=== PATIENT | female | born 1970 | race Caucasian/White ===

== ENCOUNTER 2023-03-15 13:11 | Emergency (ER) | payer OTHER, SELFPAY ==
[2023-03-15 13:35] VITALS: BP 111/76; PULSE 91; RESP 16; TEMP 36.7; O2SAT 97; BMI 31.9
== END 2023-03-15 15:35 | disposition left against medical advice (07) ==
PROVIDERS: Emergency Provider Emergency Medicine
DX: L98.9 Disorder of the skin and subcutaneous tissue, unspecified (principal)
CPT/HCPCS: 99281

== ENCOUNTER 2023-03-29 16:41 | Emergency (ER) | payer MEDICARE, SELFPAY ==
[2023-03-29 16:44] VITALS: BP 145/75; PULSE 95; RESP 16; TEMP 36.4; O2SAT 99; BMI 31.8
--- NOTE | 2023-03-29 17:44 | DI.RAD.S_ITS ---
PROCEDURE: XR ACUTE ABDOMEN SERIES INDICATIONS: Abdominal pain TECHNIQUE: One view chest and two views of the abdomen were acquired. COMPARISON: None. FINDINGS: Surgical changes and devices: Artificial disc within the L4-5 disc space. Chest: Lungs are clear. Heart size is normal. No pleural effusions. No pneumoperitoneum. Abdomen: Increased stool in the large bowel suggests constipation. No free air, pneumatosis or portal venous gas. No air-fluid levels. Bones: Degenerative disc disease at L3-4. Healed right rib fracture. IMPRESSION: 1. No acute cardiopulmonary abnormality. 2. No acute plain film abnormality of the abdomen. Dictated by: Syed Tello M.D. on 03/29/2023 at 17:47 Approved by: Syed Tello M.D. on 03/29/2023 at 17:51
--- NOTE | 2023-03-29 17:50 | ED_ITS ---
HPI - Female Genitourinary <Deanna Bolivar PA-C - Last Filed: 03/29/23 19:13> General Chief complaint: Urogenital-Female Stated complaint: Stomach swelling Time Seen by Provider: 03/29/23 16:56 Source: patient Mode of arrival: Ambulatory History of Present Illness HPI Narrative: 52-year-old woman on chronic methadone treatment presents with concern for possible UTI and possible constipation. Patient states that 3 months ago she was in the hospital in [place] with an abdominal infection she is unclear exactly what it was, but my bowels weren't moving and she states that recently she feels she has been having to push somewhat when she pees and she has been having smaller bowel movements. She says she has been having abdominal pain for the past 3 months that has been constant ever since she left the hospital and it has been slightly worse in the past 2 weeks. Patient wonders if this is related to her blood type. She states that she has been having bowel movements including this morning and yesterday but these are smaller than ?normal. She states she has not yet established care with a primary care provider but she is trying to, her friend/ housemate who she lives with his here with her today. She states she has been using medicine to help with constipation ?ever since I left the hospital 3 months ago. She denies nausea, vomiting, diarrhea, inability to have a bowel movement, severe abdominal pain, urgency frequency or pain with urination. Related Data Previous Rx's Medication Instructions Recorded doxycycline hyclate 100 mg capsule 100 mg PO BID 10 days #20 caps 03/29/23 Allergies Allergy/AdvReac Type Severity Reaction Status Date / Time No Known Drug Allergies Allergy Verified 03/29/23 16:44 Review of Systems <Deanna Bolivar PA-C - Last Filed: 03/29/23 19:13> Review of Systems Narrative: See HPI Patient History <Deanna Bolivar PA-C - Last Filed: 03/29/23 19:13> Substance Use Type: does not use Exam <Deanna Bolivar PA-C - Last Filed: 03/29/23 19:13> Narrative Exam Narrative: GENERAL: 52 year old patient appears stated age. Well-developed patient, in mild distress. HEAD: Atraumatic. Normocephalic. EYES: Pupils equal round and reactive. Extraocular motions intact. No scleral icterus. No injection or drainage. ENT: Patient has upper plate dentures present, Nose without bleeding, purulent drainage. Throat without erythema, tonsillar hypertrophy or exudate. Airway patent. No lymphadenopathy noted NECK: Trachea midline. Non tender CARDIOVASCULAR: Regular rate and rhythm without murmurs, gallops, or rubs. RESPIRATORY: Clear to auscultation. Breath sounds equal bilaterally. No wheezes, rales, or rhonchi. GASTROINTESTINAL: Abdomen soft, there is mild generalized tenderness, belly is protuberant, nondistended, there is right flank tenderness, there is a midline well-healed abdominal scar. EXTREMITIES: No edema or joint tenderness. BACK: Nontender without deformity or crepitance. Right flank tenderness. NEURO: AOx3. SKIN: There is a proximally 2 x 4 cm old purplish bruise on the left posterior upper arm, there are multiple lesions less than 0.5 cm present on the patient's lower extremities and arms which appeared to have been picked open, possibly consistent with bug bites. They are non fluctuant without induration or notable discharge. No rash or erythema of visible areas Initial Vital Signs Initial Vital Signs: Vital Signs Temperature 97.5 F L 03/29/23 16:44 Pulse Rate 95 H 03/29/23 16:44 Respiratory Rate 16 03/29/23 16:44 Blood Pressure 145/75 H 03/29/23 16:44 Pulse Oximetry 99 03/29/23 16:44 Oxygen Delivery Method Room Air 03/29/23 16:44 <Justen Gaxiola DO - Last Filed: 03/30/23 02:00> Initial Vital Signs Initial Vital Signs: Vital Signs Temperature 97.5 F L 03/29/23 16:44 Pulse Rate 95 H 03/29/23 16:44 Respiratory Rate 16 03/29/23 16:44 Blood Pressure 145/75 H 03/29/23 16:44 Pulse Oximetry 99 03/29/23 16:44 Oxygen Delivery Method Room Air 03/29/23 16:44 Course <Deanna Bolivar PA-C - Last Filed: 03/29/23 19:13> Orders Ordered: ED Orders 03/29/23 17:44 XR acute abdomen series Stat Discontinued Medications Ondansetron HCl (Ondansetron 4 Mg Odt) 4 mg SL NOW PRN PRN Reason: Nausea And Vomiting Ondansetron HCl (Ondansetron 4 Mg/2 Ml Inj) 4 mg IV NOW PRN PRN Reason: Nausea And Vomiting Vital Signs Vital signs: Vital Signs - 8 hr 03/29/23 16:44 Temperature 97.5 F L Pulse Rate 95 H Respiratory Rate 16 Blood Pressure 145/75 H Pulse Oximetry 99 Oxygen Delivery Method Room Air <Justen Gaxiola DO - Last Filed: 03/30/23 02:00> Orders Ordered: ED Orders 03/29/23 17:44 XR acute abdomen series Stat Discontinued Medications Ondansetron HCl (Ondansetron 4 Mg Odt) 4 mg SL NOW PRN PRN Reason: Nausea And Vomiting Ondansetron HCl (Ondansetron 4 Mg/2 Ml Inj) 4 mg IV NOW PRN PRN Reason: Nausea And Vomiting Vital Signs Vital signs: Vital Signs - 8 hr 03/29/23 16:44 Temperature 97.5 F L Pulse Rate 95 H Respiratory Rate 16 Blood Pressure 145/75 H Pulse Oximetry 99 Oxygen Delivery Method Room Air MDM - Female Genitourinary <Deanna Bolivar PA-C - Last Filed: 03/29/23 19:13> Medical Records Attestation: I reviewed the patient's medical records. Lab Data Attestation: I reviewed the patient's lab results. Labs: Urine Dip Bedside Urine Glucose Negative Bedside Urine Bilirubin - Negative Bedside Urine Ketone - Negative Urine Specific [place] 1.01 Bedside Urine Occult Blood - Negative Bedside Urine pH 6.0 Bedside Urine Protein - Negative Bedside Urine Urobilinogen - Negative Bedside Urine Nitrite - Negative Bedside Urine Leukocytes - Negative Esterase Imaging Data Abdominal x-ray: My Impression: Agree with Radiology interpretation Radiologist's Impression: [address] [address] XRay Report Signed Patient: Chela Gallegos MR#: [id number] : 1970 Acct:[id number] Age/Sex: 52 / F Date of Service: 03/29/23 Loc: ED Accession Number: [id number] ?? Procedure: XR acute abdomen series Ordering Provider: Deanna Bolivar P.A-C PROCEDURE:? XR ACUTE ABDOMEN SERIES ? INDICATIONS:? Abdominal pain ? TECHNIQUE:? One view chest and two views of the abdomen were acquired.? ? COMPARISON:? None. ? FINDINGS:? ? Surgical changes and devices:? Artificial disc within the L4-5 disc space.? ? Chest:? Lungs are clear.? Heart size is normal.? No pleural effusions.? No pneumoperitoneum.? ? Abdomen:? Increased stool in the large bowel suggests constipation.? No free air, pneumatosis or portal venous gas.? No air-fluid levels. ? Bones:? Degenerative disc disease at L3-4.? Healed right rib fracture. ? IMPRESSION:? 1. No acute cardiopulmonary abnormality.? 2. No acute plain film abnormality of the abdomen. ? ? ? Dictated by: Syed Tello M.D. on 03/29/2023 at 17:47 ? ? Approved by: Syed Tello M.D. on 03/29/2023 at 17:51?? [facility] Narrative Medical decision making narrative: This is a 52-year-old woman on chronic methadone therapy with history of previous abdominal surgery and reported abdominal infection with hospitalization 3 months ago who presents with concern for persistent abdominal discomfort for the past 3 months and left flank pain for the past 2 weeks. Patient initially presented with concern for UTI, and requesting Xanax, urine dip was unremarkable today, she does have some left CVA tenderness, endorses a history of horseshoe kidneys. Patient also had multiple other complaints including sinus congestion and some chronic lesions on her skin that she has been picking at. Patient states that she never took the antibiotics for her skin lesions if she was prescribed any when she went to the walk-in clinic. Given the patient endorsed some decreased bowel movements compared to baseline with smaller BMs recently abdominal x-ray series is obtained for further evaluation which returns unrema rkable. Patient is working on getting established with a PCP. Patient has unremarkable vitals today, no history or exam findings concerning for sepsis or other acute process and labs are not obtained today. Prescription for doxycycline, return precautions provided, follow-up plan discussed, all questions answered. Notably patient is currently living with a former RN who is trying to be helpful to her given patient does not have very supportive family and has a lot of ongoing issues and drug use history. <Justen Gaxiola, - Last Filed: 03/30/23 02:00> Lab Data Labs: Urine Dip Bedside Urine Glucose Negative Bedside Urine Bilirubin - Negative Bedside Urine Ketone - Negative Urine Specific [place] 1.01 Bedside Urine Occult Blood - Negative Bedside Urine pH 6.0 Bedside Urine Protein - Negative Bedside Urine Urobilinogen - Negative Bedside Urine Nitrite - Negative Bedside Urine Leukocytes - Negative Esterase Discharge Plan Departure Patient Disposition: Home Clinical Impression: Skin lesions, Abdominal pain, chronic, generalized, Left flank pain Activity Restrictions/Additional Instructions: *You have been diagnosed with [chronic abdominal pain and flank pain] *What to do: *Please continue to take your regular medications as directed. [ 1] New medication prescriptions sent to your pharmacy: [doxycycline] [ ] New medication written as a paper prescription [ ] No new medications given *Please follow up with your primary care provider in 2-3 days, call for an appointment. Let them know you were seen in the Emergency Department and that we ask that you be seen in follow up. We will electronically transmit a record of today's note if your PCP is in our system. You came in with some concern for possible urinary tract infection today, your urine was looking good there is no evidence of an infection. We also did x-rays to further evaluate for your chronic abdominal pain which she feels has been worse in the last few weeks, these also looked fine. I encourage you to drink plenty of fluids, eat vegetables and you may want to take MiraLax or an [id number] similar supplement to help with your bowel movements. If you do develop new or worsening symptoms do not hesitate to seek re-evaluation, I strongly encourage you to work on getting in with your PCP, to help you with some of your ongoing medical issues and chronic pain. I did prescribe an antibiotic for your skin lesions, please do your best not to pick at them. *If you do not have a primary care provider please contact the [facility] Resource line at [phone]. They will ask some questions about your medical history and help get you set up with a doctor in the community. *Return to Emergency Department if you should have any new, worsening or concerning symptoms, such as [fever greater than 101 F, shaking chills, worsening pain, persistent vomiting or other bothersome symptoms] Prescriptions: New doxycycline hyclate 100 mg capsule 100 mg PO BID 10 Days Qty: 20 0RF Referrals: Miscellaneous,[facility] [Primary Care Provider] - Stand Alone Forms: Patient Portal/API <Justen Gaxiola DO - Last Filed: 03/30/23 02:00> Cosign ED Attending Agustínature Attestation: I was immediately available in the department for consultation. Documentation has been reviewed. I agree with assessment and plan.
--- NOTE | 2023-03-29 18:08 | PC.NURSE ---
Pt upset at being asked to wait in waiting room for results. Explained that provider will see her again. She continues to list multiple complaints. Easy work of breathing. [place]/warm/dry. Moving all extremities equally well. Person with her does not seem to view her behavior / mental status as abnormal for her.
== END 2023-03-29 19:33 | disposition home or self-care (01) ==
PROVIDERS: Emergency Provider Student in an Organized Health Care Education/Training Program
DX: R10.84 Generalized abdominal pain (principal); L98.9 Disorder of the skin and subcutaneous tissue, unspecified
CPT/HCPCS: 74022; 81003; 99283